=== PATIENT | female | born 1965 | race African-American/Black ===

== ENCOUNTER 2017-01-05 07:57 | Day surgery (SDC) | payer BC ==
[~2017-01-05] VITALS: Ht 170.2 cm; Wt 86.4 kg
[2017-01-05 08:56] VITALS: Ht 170.2 cm; Wt 86.4 kg
[2017-01-05 09:37] VITALS: BP 141/74; PULSE 64; RESP 17
--- NOTE | 2017-01-05 10:01 | OPPN ---
Date/Time of Note Date/Time of Note DATE: 01/05/17 TIME: 10:00 Operative Report Preoperative Diagnosis Colon cancer screening Postoperative Diagnosis Colon cancer screening Operation/Procedure Performed Colonoscopy Negative all the way into cecum Provider: DORENE GARDUNO MD Anesthesia Type: moderate sedation Estimated blood loss: none Transfusion Required: no Specimen: none Grafts/Implants: none Complications: no DORENE GARDUNO MD Jan 05, 2017 10:01
[2017-01-05] MEDS ORDERED: FENTAnyl 50 MCG/ML VIAL ONE (11:14)
[2017-01-05] MEDS ORDERED: MIDAZOLAM 1 MG/ML 2 ML INJ ONE ×2 (11:14)
--- NOTE | 2017-01-05 12:26 | GILP ---
DATE OF PROCEDURE: 01/05/2017 PROCEDURE PERFORMED: Colonoscopy. SURGEON: Esteban Navarrete MD INDICATIONS FOR PROCEDURE: A 51-year-old female undergoing this procedure for colon cancer screening. The risks of the procedure, related complications, anesthetic and sedative risk, alternatives discussed and informed consent was obtained. DESCRIPTION OF PROCEDURE: The patient was brought to the GI lab, sedated with 4 mg of Versed and 75 mg of fentanyl. After optimal sedation, scope was passed as much as into the rectum, advanced to the sigmoid, descending colon all the way into the cecum. Clarity and cleanliness was good. While coming out, mucosa thoroughly inspected. The rest of the colon was normal. Retroflexion done and small hemorrhoids identified. The scope was removed with excellent patient tolerance. IMPRESSION: 1. Normal findings all the way into the cecum. Normal appendix, caput of the cecum and IC valve. 2. Retroflexion was normal except for the hemorrhoid. 3. Clarity and cleanliness was good. PLAN: Stay on high-fiber diet. Dictated By: Esteban Navarrete MD /[email or web address]/chris /Document#: [id number]
== END 2017-01-05 13:20 | disposition home or self-care (01) ==
LOC: GIL 07:57
PROVIDERS: ATTEND Internal Medicine Gastroenterology
DX: Z12.11 Encounter for screening for malignant neoplasm of colon (principal)
CPT/HCPCS: 45378; J2250; J3010

== ENCOUNTER 2018-10-31 06:39 | Day surgery (SDC) | payer BC ==
[~2018-10-31] VITALS: Ht 167.6 cm; Wt 82.9 kg
[2018-10-31] VITALS (10 sets, daily range): BP systolic 105–133; BP diastolic 64–77; PULSE 64–94; RESP 15–26; Ht 167.6 cm; Wt 82.9 kg
--- NOTE | 2018-10-31 08:34 | PREAC ---
Date/Time of Note Date/Time of Note DATE: 10/31/18 TIME: 08:33 Anesthesia Eval and Record Evaluation Time Pre-Procedure Interview DATE: 10/31/18 TIME: 08:33 Age 53 Sex female NPO: 8 hrs Preoperative diagnosis laryngeal mass Planned procedure laryngoscopy with excisional biopsy of laryngeal mass Past Medical History Past Medical History: None Surgery & Anesthesia Issues No known issue Meds Anticoagulation: No Beta Tracy within 24 hr: No Reason Beta Tracy not given: Pt. not on B-Tracy Discontinued Reported Medications [none] No Conflict Check 01/05/17 Meds reviewed: Yes Allergies Coded Allergies: No Known Allergy (Unverified , 10/31/18) Allergies Reviewed: Yes Labs/Studies Labs Reviewed: Reviewed by anesthesiologist test: Negative Pre-procedure Exam Last vitals Vital Signs Date Temp Pulse Resp B/P (MAP) Pulse Ox O2 O2 Flow FiO2 Time Delivery Rate 10/31/18 97.0 67 16 118/68 100 Room Air 07:41 (85) Airway: Adequate mouth opening, Adequate thyromental dist Mallampati: Mallampati II Teeth: Normal Lung: Normal Heart: Normal ASA Physical Status ASA physical status: 1 Emergency: None Planned Anesthetic General/MAC: ETT Planned Pain Management Parenteral pain med Pre-operative Attestations Prior to commencing anesthesia and surgery, the patient was re-evaluated, there was verification of: *The patient's identity *The results of appropriate recent lab work and preoperative vital signs *The above evaluation not changing prior to induction *Anesthetic plan, risk benefits, alternative and complications discussed with patient/family; questions answered; patient/family understands, accepts and wishes to proceed. JOSHUA BAH MD Oct 31, 2018 08:34
--- NOTE | 2018-10-31 08:34 | HPN ---
Date/Time of Note Date/Time of Note DATE: 10/31/18 TIME: 08:33 Interval H&P Admission Note Pt. seen H&P reviewed: No system changes ANTWON RAMACHANDRAN M.D. Oct 31, 2018 08:34
[2018-10-31] MEDS ORDERED: MIDAZOLAM 1 MG/ML 2 ML INJ ONE (08:59)
[2018-10-31] MEDS ORDERED: FENTAnyl 50 MCG/ML VIAL ONE (09:04)
[2018-10-31] MEDS ORDERED: LIDOCAINE 2% (SDV) 5 ML INJ ONE (09:16)
[2018-10-31] MEDS ORDERED: PROPOFOL 20 ML ONE (09:16)
[2018-10-31] MEDS ORDERED: ROCURONIUM 50 MG INJ ONE (09:16)
[2018-10-31] MEDS ORDERED: DEXAMETHASONE 4 MG/ML 5 ML INJ ONE (09:16)
[2018-10-31] MEDS ORDERED: SUCCINYLCHOLINE CHLORIDE 100 MG/5 ML SYG IV ONE (09:16)
[2018-10-31] MEDS ORDERED: ONDANSETRON 4 MG INJ ONE (09:16)
[2018-10-31] MEDS ORDERED: PHENYLephrine (100 MCG/ML) 10ML SYG ONE (09:17)
[2018-10-31] MEDS ORDERED: HYDROmorphONE 1 MG/5 ML IV SYRINGE IV PRN ×3 (09:30)
[2018-10-31] MEDS ORDERED: OXYCODONE/ACETAMINOPHEN (5/325) TAB PO PRN (09:30)
[2018-10-31] MEDS ORDERED: FENTAnyl 50 MCG/ML VIAL IV PRN (09:30)
[2018-10-31] MEDS ORDERED: DIPHENHYDRAMINE 50 MG INJ IV PRN (09:30)
[2018-10-31] MEDS ORDERED: MEPERIDINE 25 MG INJ IV PRN (09:30)
[2018-10-31] MEDS ORDERED: PROCHLORPERAZINE 10 MG INJ IV PRN (09:30)
[2018-10-31] MEDS ORDERED: ONDANSETRON 4 MG INJ IV PRN (09:30)
[2018-10-31] MEDS ORDERED: SUGAMMADEX SODIUM 200 MG/2 ML VIAL IV ONE ×2 (09:37→09:44)
--- NOTE | 2018-10-31 09:58 | OPR ---
Date/Time of Note Date/Time of Note DATE: 10/31/18 TIME: 09:54 Operative Report Procedure Date: Oct 31, 2018 Preoperative Diagnosis 1. TRUE VOCAL CORD LESION. R/O CA. Postoperative Diagnosis SAME. Operation/Procedure Performed 1. MICRO SUSPENSION DIRECT LARYNGOSCOPY WITH BIOPSY. Surgeon see signature line Parking Attendant NONE. Anesthesia Type: general (WITH OT TUBE INTUBATION. ) Estimated Blood Loss: 0 - 10 ml's Transfusion none Specimen RIGHT TRUE VOCAL CORD POSTERIOR BENIGN APPEARING LESION. LESS THAN 4 MM SIZE. Grafts/Implants none Tubes/Drains NONE. Complications none Pt Condition Post Procedure: stable Disposition: PACU Indications TO R/O CA LARYNX. Procedure Description SEE DICTATED OPERATIVE REPORT. ANTWON RAMACHANDRAN M.D. Oct 31, 2018 09:57
--- NOTE | 2018-10-31 10:00 | PDOCDIS ---
Discharge Instructions DIAGNOSIS Discharge Diagnosis 1. RIGHT POSTERIOR TVC LESION. 2. HOARSENESS. CONDITION [id number] Patient Condition: Olleo3i Good HOME CARE INSTRUCTIONS: [id number] Diet Instructions: [id number] Regular ACTIVITY: [id number] Activity Restrictions: [id number] Slowly Increase Activity Rest between Activity Avoid heavy lifting (VOICE REST FOR 1 WEEK.) [id number] Bathing Restrictions: Nwqib3m Tub Bath FOLLOW UP/APPOINTMENTS Follow-up Plan MY OFFICE IN 2 WEEKS. SCHOOL/WORK RELEASE May return to School/Work on: Nov 03, 2018 May return to School/Work with: With Restrictions (CONSERVATIVE VOICE USE FOR THE NEXT 2 WEEKS.) ANTWON RAMACHANDRAN M.D. Oct 31, 2018 10:00
[2018-10-31] MEDS ORDERED: CEPH-443 PO (10:01)
[2018-10-31] MEDS ORDERED: IBUP-1542 PO (10:01)
--- NOTE | 2018-10-31 10:10 | PAC ---
Date/Time of Note Date/Time of Note DATE: 10/31/18 TIME: 10:09 Post-Anesthesia Notes Post-Anesthesia Note Last documented vital signs Vital Signs Date Temp Pulse Resp B/P (MAP) Pulse Ox O2 O2 Flow FiO2 Time Delivery Rate 10/31/18 98.8 10:01 10/31/18 94 16 123/77 100 Mask 8.0 09:56 (92) Activity: WNL Respiratory function: WNL Cardiovascular function: WNL Mental status: Baseline Pain reasonably controlled: Yes Hydration appropriate: Yes Nausea/Vomiting absent: Yes Comments BP: 122/78 HR: 95 RR: 15 SaO2: 100% T: 98.8 JOSHUA BAH MD Oct 31, 2018 10:10
--- NOTE | 2018-10-31 10:51 | OPR ---
DATE OF OPERATION: 10/31/2018 SURGEON: Noah Lee MD PREOPERATIVE DIAGNOSES: 1. Laryngeal lesion. 2. History of hoarseness. POSTOPERATIVE DIAGNOSES: Right laryngeal posterior lesion, benign appearing. OPERATION PERFORMED: Microsuspension direct laryngoscopy with biopsies of the larynx. ESTIMATED BLOOD LOSS: Less than 1 mL. COMPLICATIONS: No complications. SPECIMENS SENT TO LAB: A right posterior true vocal cord lesion for gross and microscopic evaluatio n. ANESTHESIA: General anesthesia with orotracheal tube intubation. The patient was also given Decadro n 10 mg for the case was begun. INDICATIONS: Mrs. Lotus Robb is a 53-year-old black female has a history of chronic hoarseness, found on ENT examination in the office to have a suspicious lesion involving the right true vocal cor d. The patient is currently being scheduled for direct laryngoscopy procedure with excisional biopsy of the lesion under general anesthesia. Risks, benefits, and alternatives have been explained thoro anishhlyuko to the patient including infection, bleeding, scar formation, possible worsening of her hoarsen ess as well as possible reaction to general local anesthetic agents. She signed a consent once her q uestions were answered. FINDINGS DURING PROCEDURE: A 4 mm right posterior true vocal cord nodular appearing lesion without a ny invasions or erosions seen in true vocal cords. The rest of the larynx and perilaryngeal structur es were within normal limits. DESCRIPTION OF PROCEDURE: The patient was taken the operating room, placed on the surgical table in supine position, made comfortable by the anesthesiologist, Dr. Henderson. The patient had EKG, saturat ion monitor and blood pressure cuff applied. At this point, the patient was then given mask inhalati on agents, placed asleep gently. The patient had a previously started IV in the preinduction area wh ich was infusing well. The patient was given IV sedation and placed under general anesthesia. The p atient was then successfully orotracheally intubated with orotracheal tube without any complications. At this point, the tube was taped to the left corner of the mouth. The eyes were taped for protect ion. Table was then unlocked and rotated 90 degrees to the right before being relocked. Head of tab le was extended to allow access to the oral cavity. The patient was draped off in the usual sterile fashion using a split sheet. At this point, a brief time-out with patient identification and procedu res entertained, and all were in agreement. At this point, a moist sponge was placed over the upper dental structures as an anterior commissure scope was placed inside and oral cavity and guided down t owards the larynx. The epiglottis was then evaluated. It was then brought into view and the scope w as placed on the laryngeal surface of the epiglottis. At this point, the 2 vocal cords were brought into view as the suspension arm was used to suspend the laryngoscope. At this point, a nodular appea ring lesion on the right true vocal cord in the superior surface was then removed with excisional bio psy using a cup forcep. At this point, there was minimal amount of bleeding as the biopsy was contin ued down through the mucosal lining. The rest of the larynx appeared to be normal as was the pyrifor m sinus, vallecula and base of tongue area. The cricopharyngeus was also evaluated and found not to have any lesions. The patient was then reversed from general anesthetic agents, extubated in the ope rating room where both true vocal cords were found to move well upon removal of the orotracheal tube. The patient was then taken to the recovery room where she is currently doing well, expected to be d ischarged home unless postoperative complications develop. Dictated By: NOAH DAWSON/ALEXANDER Conf#: [id number] DID#: [id number]
== END 2018-10-31 11:30 | disposition home or self-care (01) ==
LOC: SDS 06:39
PROVIDERS: ATTEND Otolaryngology Otolaryngology/Facial Plastic Surgery
DX: J38.7 Other diseases of larynx (principal)
CPT/HCPCS: 31535; 88305; J1100; J2250; J2370; J2405; J3010; Z7512; Z7610